=== PATIENT | male | born 1980 | race Caucasian/White ===

== ENCOUNTER 2016-08-06 07:11 | Outpatient (CLI) | payer OTHER ==
[2016-08-06 13:23] LABS: ALBUMIN/GLOBULIN RATIO 1.5 (1.0-2.2); BUN - BLOOD UREA NITROGEN 20 mg/dL (6-20); CALCIUM 9.3 mg/dL (8.5-10.3); CARBON DIOXIDE - CO2 25 mmol/L (21-32); CHLORIDE 106 mmol/L (101-111); CHOL/HDL RATIO 4.9 (<5.0); CHOLESTEROL 221 mg/dL; CREATININE 1.1 mg/dL (0.6-1.2); GFR - MDRD 75 (>89); GLUCOSE 85 mg/dL (70-100); HDL CHOLESTEROL 45 mg/dL; IRON 58 ug/dL (45-182); LDL/HDL RATIO 3.3 (<3.6); POTASSIUM 3.8 mmol/L (3.5-5.0); SODIUM 138 mmol/L (135-145); TOTAL IRON BINDING CAPACITY 314 ug/dL (250-450); TOTAL PROTEIN 7.2 g/dL (6.7-8.2); TRANSFERRIN 224 mg/dL (180-329); TRIGLYCERIDES 130 mg/dL; VLDL CHOLESTEROL 26 mg/dL
[2016-08-06 13:32] LABS: BASOPHILS % (AUTO) 0.6 %; EOSINOPHILS # (AUTO) 0.3 10^3/uL (0.0-0.7); EOSINOPHILS % (AUTO) 3.6 %; HCT - HEMATOCRIT 41.9 % (42.0-52.0); HGB - HEMOGLOBIN 14.4 g/dL (14.0-18.0); LYMPHOCYTES # (AUTO) 2.7 10^3/uL (1.5-3.5); LYMPHOCYTES % (AUTO) 35.8 %; MEAN CORPUSCULAR HGB CONC 34.2 g/dL (32.0-36.0); MEAN CORPUSCULAR VOLUME 84.8 fL (80.0-94.0); MEAN PLATELET VOLUME 7.5 fL (7.4-11.4); MONOCYTES # (AUTO) 0.7 10^3/uL (0.0-1.0); MONOCYTES % (AUTO) 8.9 %; NEUTROPHILS # (AUTO) 3.8 10^3/uL (1.5-6.6); NEUTROPHILS % (AUTO) 51.1 %; RED BLOOD COUNT 4.95 10^6/uL (4.70-6.10); RED CELL DISTRIBUTION WIDTH 14.3 % (12.0-15.0); UNCORRECTED WHITE BLOOD COUNT 7.4 x10^3/uL; WHITE BLOOD COUNT 7.4 x10^3/uL (4.8-10.8)
== END 2016-08-06 07:12 | disposition home or self-care (01) ==
LOC: LAB.WCP 07:11
PROVIDERS: ATTEND Family Medicine
DX: E78.5 Hyperlipidemia, unspecified (principal); D50.9 Iron deficiency anemia, unspecified
CPT/HCPCS: 36415; 80053; 80061; 82728; 83540; 84466; 85025

== ENCOUNTER 2020-02-28 12:20 | Outpatient (CLI) | payer OTHER | END 2020-02-28 23:59 | disposition home or self-care (01) | LOC: COV 12:20 | PROVIDERS: ATTEND Family Medicine | DX: R53.83 Other fatigue (principal); Z20.822 Contact with and (suspected) exposure to COVID-19 ==